=== PATIENT | female | born 1965 | race Caucasian/White ===

== ENCOUNTER → 2022-08-12 | Outpatient (CLI) | payer BC ==
--- NOTE | 2022-08-15 08:21 | MM ---
Reason for Exam: Screening (asymptomatic). Last mammogram was performed 10 year(s) and 0 month(s) ago. Patient History: Menarche at age 16. First Full-Term at age 31. 2012, Bilateral Reduction. Mother had breast cancer at or over age 50. Risk Values: Sandra 5 year model risk: 2.1%. NCI Lifetime model risk: 14.2%. Tissue Density: There are scattered fibroglandular densities. Findings: Analyzed By CAD. There is no suspicious group of microcalcifications or new suspicious mass in either breast. Overall Assessment: Benign, BI-RAD 2 Management: Screening Mammogram of both breasts in 1 year. A clinical breast exam by your physician is recommended on an annual basis and results should be correlated with mammographic findings. Electronically signed and approved by: Adelfo Hutson M.D. Radiologis
== END | disposition home or self-care (01) ==
LOC: RADMAMWWP 15:45
PROVIDERS: ATTEND Family Medicine
DX: Z12.31 Encounter for screening mammogram for malignant neoplasm of breast (principal); Z80.3 Family history of malignant neoplasm of breast
CPT/HCPCS: 77063; 77067

== ENCOUNTER → 2023-09-20 | Outpatient (CLI) | payer BC ==
--- NOTE | 2023-09-20 20:07 | MM ---
Reason for Exam: Clinical finding. Last mammogram was performed 1 year(s) and 1 month(s) ago. Patient History: Menarche at age 16. First Full-Term at age 31. 2011, Bilateral Reduction. Maternal grandmother had breast cancer, age 60. Mother had breast cancer at or over age 50. Risk Values: Sandra 5 year model risk: 2.2%. NCI Lifetime model risk: 14.0%. Tissue Density: There are scattered fibroglandular densities. Findings: Analyzed By CAD. Bilateral postreduction mammoplasty changes. Unchanged fat necrosis calcifications and chronic adjacent nodularity in the right breast. There is a spiculated, irregular mass approximately 10:00 left breast anterior depth measuring 1.7 cm which is highly suspicious. Further ultrasound evaluation recommended. Overall Assessment: Incomplete: need additional imaging evaluation, BI-RAD 0 Management: Diagnostic Breast Ultrasound of the left breast. Electronically signed and approved by: Ade Ceja M.D. Radiologist
--- NOTE | 2023-09-21 12:38 | USB ---
Reason for Exam: Clinical finding. Patient History: Menarche at age 16. First Full-Term at age 31. 2012, Bilateral Reduction. Maternal grandmother had breast cancer, age 60. Mother had breast cancer at or over age 50. Risk Values: Sandra 5 year model risk: 2.2%. NCI Lifetime model risk: 14.0%. Technique: Method: Whole Breast Handheld. Prior Study Comparison: 08/12/2022 Bilateral MG 3D screening mammo w/cad, [facility]. Findings: The whole breast of the left breast, the axilla of the left breast and the retroareolar of the left breast were scanned. A complete US of all four quadrants of the breast, axilla, and retro-areolar region were reviewed. There is a highly suspicious vertically oriented hypoechoic irregular mass at the 10:00 position, 3 cm from the nipple. This measures up to 1.7 cm and abuts the undersurface of the skin layer. No other solid or cystic lesion or axillary lymphadenopathy. Overall Assessment: Highly suggestive of malignancy, BI-RAD 5 Management: Ultrasound-Guided Core Biopsy of the left breast. Electronically signed and approved by: Ade Ceja M.D. Radiologist
== END | disposition home or self-care (01) ==
LOC: RADMAMWWP 15:53
PROVIDERS: ATTEND Family Medicine
DX: R92.323 Mammographic fibroglandular density, bilateral breasts (principal); Z80.3 Family history of malignant neoplasm of breast
CPT/HCPCS: 77062; 77066

== ENCOUNTER → 2023-10-12 | Day surgery (SDC) | payer BC ==
--- NOTE | 2023-10-19 09:23 | MM ---
Reason for Exam: Post Procedure Mammogram. Last screening mammogram was performed less than 1 month ago. Patient History: Menarche at age 16. First Full-Term at age 31. 2012, Bilateral Reduction. Maternal grandmother had breast cancer, age 60. Mother had breast cancer at or over age 50. Risk Values: Sandra 5 year model risk: 2.2%. NCI Lifetime model risk: 14.0%. Prior Study Comparison: 08/12/2022 Bilateral MG 3D screening mammo w/cad, [facility]. 09/20/2023 Bilateral MG 3D diag mammo w/cad [facility], [facility]. Tissue Density: Left: There are scattered fibroglandular densities. Pathology Description: Location: 10 o'clock. Marker Left Behind. Needle Type: Celero Cores: 3 Gauge: 12 The procedure of ultrasound guided core biopsy was explained to the patient. Benefits, alternatives, and risks were discussed. An informed consent was then obtained. The patient was placed in supine positioning for imaging and for the procedure. The overlying skin was prepped and draped in usual sterile fashion. Lidocaine buffered with bicarbonate was used as anesthetic into the skin and subcutaneous tissue up to area of concern in the left 10:00 breast. A dave was made with surgical scalpel. Under ultrasound guidance, a 12-gauge vacuum assisted biopsy gun device was used to obtain 3 core samples. Following this, a biopsy clip was left in lesion. The patient tolerated the procedure well without any immediate complication. The patient was kept in the radiology department for short stay after the procedure and then discharged home in stable condition. Postprocedure mammogram: The patient was transferred to mammography for physician ordered post procedure mammogram for clip placement verification. Impression: Successful, uncomplicated ultrasound guided core biopsy of area of concern in the left 10:00 breast, full pathology results to follow. Pathology Results: Result: Malignant, Invasive ductal carcinoma. LEFT BREAST, 10:00, ULTRASOUND GUIDED NEEDLE CORE BIOPSY: Invasive moderately differentiated ductal carcinoma (Grade 2). See Surgical Pathology Cancer Case Summary and Comment. Overall Assessment: Malignant Assessment: MG diagnostic mammo LT wo CAD. - Left: Known biopsy proven malignancy, BI-RAD 6. Management: Surgical Consultation of the left breast. Electronically signed and approved by: Adelfo Hutson M.D. Radiologis
== END ==
LOC: RADUSWWP 12:24
PROVIDERS: ATTEND Family Medicine
DX: C50.212 Malignant neoplasm of upper-inner quadrant of left female breast (principal); Z17.0 Estrogen receptor positive status [ER+]
CPT/HCPCS: 88305; 88342; 88341; 77065; 19083; A4648

== ENCOUNTER → 2023-10-24 | Outpatient (CLI) | payer BC ==
--- NOTE | 2023-10-25 16:11 | BMR ---
EXAM DATE: 10/25/2023 EXAM DESCRIPTION: MRI-Breast Bilat (W/WO Contrast) INDICATION: Recently diagnosed left breast cancer (ultrasound-guided biopsy of left breast at 10 o'clock position 3 cm from the nipple on 10/12 2023). History of bilateral breast reduction. COMPARISON: Comparison was made to prior relevant imaging available in PACS. TECHNIQUE: Multiplanar multisequence breast MRI was performed prior to and after administration of 9 mL of Gadavist intravenously. Post processing was performed utilizing a [employer] workstation. The exam was performed at [facility] and was submitted to review by [facility] radiology department. FINDINGS: There is minimal, symmetric background parenchymal enhancement in breasts that are composed of scattered fibroglandular tissue. Right breast: There is a slightly irregular 0.9 x 0.8 x 0.6 cm peripherally enhancing mass in the right breast at approximately 8 o'clock position mid depth (series 704 image 230 and series 801, image 204). The mass abuts the posterolateral aspect of postsurgical post reduction changes. Otherwise, no suspicious masses or other abnormalities in the right breast. Left breast: Irregular periphery enhancing mass in the anterior right breast at 10 o'clock position consistent with biopsy proven malignancy (series 704, image 435 and series 801, image 72). No definitive signal void from biopsy clip is clearly seen. The mass measures 2.5 x 1.6 x 1.4 cm and extends just below the skin surface with no definitive skin invasion or enhancement. A few foci of increased T1 signal within the mass likely represent post biopsy hemorrhagic changes. Otherwise, no suspicious masses or other abnormalities in the left breast. No axillary or internal mammary lymphadenopathy. No enhancing osseous lesion. IMPRESSION: BI-RADS 4 1. RIGHT BREAST: Subcentimeter indeterminate mass in the right breast at 8 o'clock position which likely corresponds to subcentimeter mass on recent outside right breast mammogram. Although this is not appreciably changed when compared to 08/12/2022, recommend further evaluation with diagnostic right breast mammogram and targeted ultrasound of the right breast. If clinically indicated, ultrasound-guided biopsy for definitive diagnosis may be performed. If no definitive sonographic correlate, stereotactic biopsy of mammographic abnormality may be performed. BI-RADS 4. 2. LEFT BREAST: A 2.5 x 1.6 x 1.4 cm biopsy-proven malignancy at 10 o'clock position anterior depth of the breast as described above. No additional suspicious findings in the left breast. BI-RADS 6. 3. No suspicious axillary or internal mammary lymphadenopathy. MTDD
== END | disposition home or self-care (01) ==
LOC: RADMRIMAIN 20:45
PROVIDERS: ATTEND Family Medicine
DX: C50.212 Malignant neoplasm of upper-inner quadrant of left female breast (principal); C50.112 Malignant neoplasm of central portion of left female breast
CPT/HCPCS: 77049; A9585

== ENCOUNTER → 2023-11-20 | Outpatient (CLI) | payer BC ==
--- NOTE | 2023-11-20 14:30 | USB ---
Reason for Exam: Additional evaluation requested from prior study. Patient History: Menarche at age 16. First Full-Term at age 31. Breast cancer, left, age 58. 10/12/2023, Malignant US biopsy breast VAD LT on the left side. 2011, Bilateral Reduction. Maternal grandmother had breast cancer, age 60. Mother had breast cancer at or over age 50. Technique: Method: Targeted. Prior Study Comparison: 08/12/2022 Bilateral MG 3D screening mammo w/cad, [facility]. 09/20/2023 Bilateral MG 3D diag mammo w/cad [facility], [facility]. 10/12/2023 Left MG diagnostic mammo LT wo CAD., [facility]. Findings: The lower outer quadrant of the right breast, the axilla of the right breast and the retroareolar of the right breast were scanned. Technique utilized:US breast limited RT Image; Ultrasound imaging of: Area of concern, retroareolar region and axilla. Area of concern which enhances on MRI isn't seen on prior back in 2021 however this area at 9:00 7 cm from the nipple does have some enhancement on breast MRI 10/24/2023. Tissue sampling recommended for definitive diagnosis. Normal appearing lymph node in the axilla. Overall Assessment: Suspicious, BI-RAD 4 Management: Ultrasound Core Biopsy of the right breast. A clinical breast exam by your physician is recommended on an annual basis and results should be correlated with mammographic findings. This exam should not preclude additional follow-up of suspicious palpable abnormalities. Results were given to the patient verbally at the time of exam. Electronically signed and approved by: Jonel Umanzor DO
== END | disposition home or self-care (01) ==
LOC: RADUSWWP 13:47
PROVIDERS: ATTEND Surgery
DX: R92.8 Other abnormal and inconclusive findings on diagnostic imaging of breast (principal); Z80.3 Family history of malignant neoplasm of breast; Z85.3 Personal history of malignant neoplasm of breast

== ENCOUNTER → 2023-11-24 | Day surgery (SDC) | payer BC ==
--- NOTE | 2023-11-29 10:42 | MM ---
Reason for Exam: Post Procedure Mammogram. Last screening mammogram was performed 2 month(s) ago. Patient History: Menarche at age 16. First Full-Term at age 31. Breast cancer, left, age 58. 10/12/2023, Malignant US biopsy breast VAD LT on the left side. 2011, Bilateral Reduction. Maternal grandmother had breast cancer, age 60. Mother had breast cancer at or over age 50. Prior Study Comparison: 08/12/2022 Bilateral MG 3D screening mammo w/cad, [facility]. 09/20/2023 Bilateral MG 3D diag mammo w/cad [facility], [facility]. 10/12/2023 Left MG diagnostic mammo LT wo CAD., [facility]. Tissue Density: Right: There are scattered areas of fibroglandular density. Pathology Description: Location: 9 o'clock. Marker Left Behind. Needle Type: Mammotome Cores: 7 Skin Nicks: 1 Gauge: 13 The procedure of ultrasound guided core biopsy was explained to the patient. Benefits, alternatives, and risks were discussed. An informed consent was then obtained. The patient was placed in supine positioning for imaging and for the procedure. The overlying skin was prepped and draped in usual sterile fashion. Lidocaine buffered with bicarbonate was used as anesthetic into the skin and subcutaneous tissue up to area of concern in the right breast 9 o'clock 7 cm from the nipple. A dave was made with surgical scalpel. Under ultrasound guidance, a 12-gauge vacuum assisted biopsy gun device was used to obtain 7 core samples. Following this, a biopsy clip was left in lesion. The patient tolerated the procedure well without any immediate complication. The patient was kept in the radiology department for short stay after the procedure and then discharged home in stable condition. Postprocedure mammogram: The patient was transferred to mammography for physician ordered post procedure mammogram for clip placement verification. Impression: Successful, uncomplicated ultrasound guided core biopsy of area of concern in the right breast 9 o'clock 7 cm from the nipple, full pathology results to follow. Pathology Results: Result: Malignant, Invasive ductal carcinoma. Pathology and radiology were reviewed. Findings are concordant. 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 Overall Assessment: Malignant Assessment: MG diagnostic mammo RT wo CAD - Right: Known biopsy proven malignancy, BI-RAD 6. Management: Surgical Consultation of the right breast. Electronically signed and approved by: Jonel Umanzor DO
== END ==
LOC: RADUSWWP 08:37
PROVIDERS: ATTEND Surgery
DX: D05.11 Intraductal carcinoma in situ of right breast (principal); Z17.0 Estrogen receptor positive status [ER+]; Z80.3 Family history of malignant neoplasm of breast
CPT/HCPCS: 88305; 88342; 88341; 77065; 19083; A4648

== ENCOUNTER → 2024-06-19 | Outpatient (CLI) | payer BC ==
--- NOTE | 2024-06-19 09:21 | MM ---
Reason for Exam: Clinical finding. Last screening mammogram was performed 9 month(s) ago. Indicated Problems: Lump or thickening of the left side for 1 Week(s). Patient History: Menarche at age 16. First Full-Term at age 31. Postmenopausal. Breast cancer, left, age 58. Breast cancer, right, age 58. 11/24/2023, Malignant US biopsy breast VAD RT on the right side. 10/12/2023, Malignant US biopsy breast VAD LT on the left side. 2011, Bilateral Reduction. Maternal grandmother had breast cancer, age 60. Mother had breast cancer at or over age 50. Prior Study Comparison: 08/12/2022 Bilateral MG 3D screening mammo w/cad, [facility]. 09/20/2023 Bilateral MG 3D diag mammo w/cad [facility], [facility]. 10/12/2023 Left MG diagnostic mammo LT wo CAD., [facility]. 11/24/2023 Right MG diagnostic mammo RT wo CAD, [facility]. Tissue Density: Left: The breasts are almost entirely fatty. Findings: Analyzed By CAD. Increased lymphadenopathy axilla on MLO view. Postsurgical changes left breast with surgical clips. This is felt to correlate with palpable marker. Overall Assessment: Incomplete: need additional imaging evaluation, BI-RAD 0 Management: Diagnostic Breast Ultrasound of the left breast. Results were given to the patient verbally at the time of exam. Patient should continue monthly self-breast exams. A clinical breast exam by your physician is recommended on an annual basis. This exam should not preclude additional follow-up of suspicious palpable abnormalities. Note on Sandra scores and lifetime risk: 1. A Sandra score greater than 3% is considered moderate risk. If this is the case, consider specialist referral to assess eligibility for a risk reducing agent. 2. If overall lifetime risk for the development of breast cancer is 20% or higher, the patient may qualify for future screening with alternating mammogram and breast MRI. [facility], , 06/19/2024 9:19 AM. Electronically signed and approved by: Jonel Umanzor DO
--- NOTE | 2024-06-19 09:34 | USB ---
Reason for Exam: Clinical finding. Patient History: Menarche at age 16. First Full-Term at age 31. Postmenopausal. Breast cancer, left, age 58. Breast cancer, right, age 58. 11/24/2023, Malignant US biopsy breast VAD RT on the right side. 10/12/2023, Malignant US biopsy breast VAD LT on the left side. 2011, Bilateral Reduction. Maternal grandmother had breast cancer, age 60. Mother had breast cancer at or over age 50. Technique: Method: Targeted. Prior Study Comparison: 09/20/2023 Bilateral MG 3D diag mammo w/cad [facility], [facility]. 10/12/2023 Left MG diagnostic mammo LT wo CAD., [facility]. 11/24/2023 Right MG diagnostic mammo RT wo CAD, [facility]. Findings: The area of palpable concern of the left breast, the axilla of the left breast and the retroareolar of the left breast were scanned. Technique utilized:US breast limited LT Image; Ultrasound imaging of: Area of concern, retroareolar region and axilla. Enlarged lymph node in the axilla suspicious for anesthetic disease given history of malignancy measuring up to 2.2 cm without fatty hilum. Overall Assessment: Highly suggestive of malignancy, BI-RAD 5 Management: Ultrasound Core Biopsy of the left breast. A clinical breast exam by your physician is recommended on an annual basis and results should be correlated with mammographic findings. This exam should not preclude additional follow-up of suspicious palpable abnormalities. Results were given to the patient verbally at the time of exam. [facility], , 06/19/2024 9:30 AM. Electronically signed and approved by: Jonel Umanzor DO
== END ==
LOC: RADMAMWWP 07:55
PROVIDERS: ATTEND Internal Medicine
CPT/HCPCS: 77061; 77065

== ENCOUNTER → 2024-06-27 | Day surgery (SDC) | payer BC ==
--- NOTE | 2024-07-03 14:11 | USB ---
Prior Study Comparison: 10/12/2023 Left MG diagnostic mammo LT wo CAD., [facility]. 11/24/2023 Right MG diagnostic mammo RT wo CAD, [facility]. 06/19/2024 Left MG 3D diag mammo w/cad LT, [facility]. Pathology Description: Location: axilla. The ultrasound guided cyst aspiration procedure was explained to the patient. The risks, benefits, alternatives were discussed. An informed consent was then obtained. The patient was placed in supine positioning for imaging and for the procedure. The overlying skin was prepped with betadine and sterilely draped in usual sterile fashion. 10 ml 1% lidocaine was used as anesthetic into the skin and deeper breast tissue up to area of concern in the left axilla. The lesion is hypoechoic with through transmission and could reflect postoperative seroma. Therefore aspiration was performed. Under ultrasound guidance, an 12-gauge spinal needle was advanced into the cyst and aspiration yielded 3 mL of turbid fluid. A small residual is noted. The fluid was labeled and sent for laboratory analysis. A clip was left in lesion. Good hemostasis was obtained with direct pressure. Postprocedure mammogram: The patient was transferred to mammography for physician ordered post procedure mammogram for clip placement verification. The clip is in the expected region of the biopsy. The patient tolerated the procedure well without any immediate complication. The patient was discharged to home in stable condition. Impression: Successful ultrasound guided aspiration left axilla for which I favor a seroma. Cytology pending. [facility], , 06/27/2024 1:49 PM. Pathology Results: Result: High risk. Pathology and radiology were reviewed. Findings are concordant. LEFT AXILLA, ASPIRATION: Limited hypocellular specimen with mostly peripheral blood and scant lymphoid cells. Overall Assessment: High risk Management: Diagnostic Mammogram of the left breast in 3 months. Diagnostic Breast Ultrasound of the left breast in 3 months. Despite being called a BIRADS 5 on work up, findings may be concordant given a more clearly cystic appearance at the time of the procedure. It did not have the appearance of a rounded and replaced node at the time of the procedure. 3 month follow up recommended. Electronically signed and approved by: Adelfo Hutson M.D. Radiologis
== END ==
LOC: RADUSWWP 12:25
PROVIDERS: ATTEND Internal Medicine Hematology & Oncology
DX: R92.8 Other abnormal and inconclusive findings on diagnostic imaging of breast (principal)
CPT/HCPCS: 88305; 88173; 76942; 19000; A4648

== ENCOUNTER → 2025-03-21 | Outpatient (CLI) | payer BC | END | disposition home or self-care (01) | LOC: RADUSWWP 07:24 | PROVIDERS: ATTEND Internal Medicine Hematology & Oncology | DX: Z53.9 Procedure and treatment not carried out, unspecified reason (principal) ==

== ENCOUNTER → 2025-03-21 | Outpatient (CLI) | payer BC ==
--- NOTE | 2025-03-21 08:07 | MM ---
Reason for Exam: Hx of breast cancer, conservation therapy. Last mammogram was performed 1 year(s) and 6 month(s) ago. Patient History: Menarche at age 16. First Full-Term at age 31. Postmenopausal. Breast cancer, left, age 58. Breast cancer, right, age 58. 2023, Lumpectomy on the Left side. 2023, Lumpectomy on the Right side. 06/27/2024, High risk US breast aspiration single LT on the left side. 11/24/2023, Malignant US biopsy breast VAD RT on the right side. 10/12/2023, Malignant US biopsy breast VAD LT on the left side. 2011, Bilateral Reduction. Bilateral Radiation Therapy. Maternal grandmother had breast cancer, age 60. Mother had breast cancer at or over age 50. Prior Study Comparison: 10/12/2023 Left MG diagnostic mammo LT wo CAD., [facility]. 10/24/2023 Bilateral MR breast bilat wo/w con, [facility]. 11/20/2023 Right US breast limited RT, [facility]. 11/24/2023 Right MG diagnostic mammo RT wo CAD, [facility]. 06/19/2024 Left MG 3D diag mammo w/cad LT, [facility]. Tissue Density: There are scattered areas of fibroglandular density. Findings: Analyzed By CAD. Bilateral postsurgical changes suggesting prior lumpectomy and possible radiation therapy. Correlate clinically. Benign-appearing calcifications. No dominant mass. Stable appearing architectural distortion bilaterally. Overall Assessment: Benign, BI-RAD 2 Management: Diagnostic Mammogram of both breasts in 1 year. . Results were given to the patient verbally at the time of exam. Patient should continue monthly self-breast exams. A clinical breast exam by your physician is recommended on an annual basis. This exam should not preclude additional follow-up of suspicious palpable abnormalities. Note on Sandra scores and lifetime risk: 1. A Sandra score greater than 3% is considered moderate risk. If this is the case, consider specialist referral to assess eligibility for a risk reducing agent. 2. If overall lifetime risk for the development of breast cancer is 20% or higher, the patient may qualify for future screening with alternating mammogram and breast MRI. [facility], , 03/21/2025 8:04 AM. Electronically signed and approved by: Yoel Monterroso M.D. Radiologis
--- NOTE | 2025-03-21 08:23 | USB ---
Reason for Exam: Follow-up at short interval from prior study. Patient History: Menarche at age 16. First Full-Term at age 31. Postmenopausal. Breast cancer, left, age 58. Breast cancer, right, age 58. 2023, Lumpectomy on the Left side. 2023, Lumpectomy on the Right side. 06/27/2024, High risk US breast aspiration single LT on the left side. 11/24/2023, Malignant US biopsy breast VAD RT on the right side. 10/12/2023, Malignant US biopsy breast VAD LT on the left side. 2011, Bilateral Reduction. Bilateral Radiation Therapy. Maternal grandmother had breast cancer, age 60. Mother had breast cancer at or over age 50. Technique: Method: Targeted. Prior Study Comparison: 10/12/2023 Left MG diagnostic mammo LT wo CAD., [facility]. 11/24/2023 Right MG diagnostic mammo RT wo CAD, [facility]. 06/19/2024 Left MG 3D diag mammo w/cad LT, [facility]. Findings: The upper section of the breast of the left breast and the axilla of the left breast were scanned. A noted US of 11:00, axilla left breast breast. Area of lumpectomy and axillary scar is noted. There is a persistent small fluid collection with adjacent clip in the left axilla measuring 1 x 0.9 cm and previously measuring 1.8 x 1.9 cm... May represent recurrent fluid collection. Overall Assessment: Probably benign, BI-RAD 3 Management: Diagnostic Breast Ultrasound of the left breast in 3 months. A clinical breast exam by your physician is recommended on an annual basis and results should be correlated with mammographic findings. This exam should not preclude additional follow-up of suspicious palpable abnormalities. Results were given to the patient verbally at the time of exam. [facility], , 03/21/2025 8:20 AM. Electronically signed and approved by: Yoel Monterroso M.D. Radiologis
== END | disposition home or self-care (01) ==
LOC: RADMAMWWP 07:26
PROVIDERS: ATTEND Family Medicine
DX: R92.8 Other abnormal and inconclusive findings on diagnostic imaging of breast (principal); R92.323 Mammographic fibroglandular density, bilateral breasts; Z85.3 Personal history of malignant neoplasm of breast; Z87.898 Personal history of other specified conditions; Z78.0 Asymptomatic menopausal state; Z80.3 Family history of malignant neoplasm of breast
CPT/HCPCS: 77062; 77066